=== PATIENT | male | born 1965 | race Caucasian/White ===

== ENCOUNTER 2019-11-12 15:16 | Emergency (ER) | payer OTHER ==
[~2019-11-12] VITALS: Ht 157.5 cm; Wt 56.7 kg
[2019-11-12 15:45] VITALS: BP_SYST 149
--- NOTE | 2019-11-12 16:50 | NUR ---
Patient to ER bed H1 to gown for evaluation. Side rails up.
--- NOTE | 2019-11-12 16:52 | NUR ---
Pt brought by self,A&Ox4, pt presents to ER for medical clearance prior transfering to [facility], skin pink and warm , cap refill <3, pt speaking to himself , Hx of schizophrenia, afebrile, VSS.
--- NOTE | 2019-11-12 17:20 | NUR ---
pt refusing to give urine.
--- NOTE | 2019-11-12 18:30 | NUR ---
Dr Castrejon at bedside examining patient
--- NOTE | 2019-11-12 18:30 | NUR ---
pt refused to give urine specimen
[2019-11-12 18:43] LABS: BASOPHILS # (AUTO) 0.1 K/uL (0.0-0.2); BASOPHILS % (AUTO) 0.9 % (0.0-2.0); EOSINOPHILS # (AUTO) 0.3 K/uL (0.0-0.4); EOSINOPHILS % (AUTO) 3.4 % (0.0-4.0); HEMATOCRIT 34.1 % (36-54); HEMOGLOBIN 11.4 g/dL (14.0-18.0); LYMPHOCYTES # (AUTO) 1.2 K/uL (1.0-5.5); LYMPHOCYTES % (AUTO) 15.3 % (20.5-51.5); MEAN CORPUSCULAR HEMOGLOBIN 31 pg (27-31); MEAN CORPUSCULAR HGB CONC 33 % (32-36); MEAN CORPUSCULAR VOLUME 93 fL (79.0-98.0); MONOCYTES # (AUTO) 0.7 K/uL (0.0-1.0); MONOCYTES % (AUTO) 9.1 % (1.7-9.3); NEUTROPHILS # (AUTO) 5.5 K/uL (1.8-7.7); NEUTROPHILS % (AUTO) 71.3 % (40.0-70.0); PLATELET COUNT (AUTO) 355 K/uL (130-430); RED BLOOD CELL COUNT(AUTO) 3.66 MIL/uL (4.2-6.2); RED CELL DISTRIBUTION WIDTH 18.9 % (9.0-15.0); WHITE BLOOD COUNT (AUTO) 7.7 K/uL (4.8-10.8)
[2019-11-12 18:59] LABS: ANION GAP 3 (5-15); CALCIUM 8.4 mg/dL (8.4-11.0); CHLORIDE 95 mmol/L (98-107); CREATININE 0.74 mg/dL (0.55-1.30); GLUCOSE 85 mg/dL (70-99); POTASSIUM 4.3 mmol/L (3.5-5.1); SODIUM SERUM 129 mmol/L (136-145); UREA NITROGEN, BLOOD 13 mg/dL (8-21)
[2019-11-12 19:04] LABS: ALANINE AMINOTRANSFERASE 17 U/L (12-78); ALBUMIN 3.3 g/dL (3.4-4.8); ASPARTATE AMINOTRANSFERASE 16 U/L (10-37); TOTAL BILIRUBIN 0.2 mg/dL (0.0-1.0)
--- NOTE | 2019-11-12 19:05 | NUR ---
Pt refused MRSA. ER MD made aware.
[2019-11-12 19:11] LABS: TRIGLYCERIDES 55 mg/dL (30-150)
[2019-11-12 19:12] LABS: CHOLESTEROL 136 mg/dL (<200); HDL CHOLESTEROL 71 mg/dL (>45); LDL CHOLESTEROL 52 mg/dL (<100)
[2019-11-12 19:13] LABS: ACETAMINOPHEN < 1 ug/mL (1-30); GFR AFRICAN AMERICAN 141 mL/min (>90)
[2019-11-12 19:14] LABS: ALCOHOL, BLOOD < 3 mg/dL (<10)
--- NOTE | 2019-11-12 19:15 | NUR ---
Report given to Aneta ALVES
--- NOTE | 2019-11-12 19:18 | NUR ---
Dr. Castrejon states, "Pt is medically cleared."
--- NOTE | 2019-11-12 19:18 | NUR ---
Pt refused urine sample. ALICE GRAY made aware.
--- NOTE | 2019-11-12 20:23 | NUR ---
Patient to be transferred to [facility]. Is being transferred due to higher level of care. Receiving facility has accepting physician and available space. ER physician has signed transfer form. Patient or responsible green party has agreed to transfer and signed form. Patient belongings inventoried and will be sent with patient. Copy of nursing notes, lab reports, EKG, Physicians Orders and X-rays to be sent with patient. Report called to LONG Gambino at receiving facility. Receiving physician is Dr. Castrejon. [facility] for [facility]. ETA is now.
[2019-11-12 22:40] VITALS: BP_SYST 128
== END 2019-11-12 22:40 ==
LOC: SED 15:16
DX: E87.1 Hypo-osmolality and hyponatremia (principal); F20.9 Schizophrenia, unspecified
CPT/HCPCS: 36415; 80053; 80061; 83036; 85025; 99285; G0480; G0481; G0482